=== PATIENT | male | born 1960 | race Caucasian/White ===

== ENCOUNTER 2024-07-15 07:13 | Day surgery (SDC) | payer MEDICARE, MEDICAID ==
[2024-07-13 14:09] LABS: Urine Bacteria None Seen /hpf (None Seen)
[2024-07-13 14:16] LABS: Basophils # (auto) 0 10 ^3/uL (0-0.2); Basophils % (auto) 0.4 % (0.0-2.0); Eosinophils # (auto) 0.2 10 ^3/uL (0-0.8); Eosinophils % (auto) 3.1 % (0.0-7.0); Hematocrit 48.8 % (41.0-53.0); Hemoglobin 17.1 g/dL (13.5-17.5); Lymphocytes # (auto) 1.6 10 ^3/uL (0.4-5.4); Lymphocytes % (auto) 21.2 % (10.0-50.0); Mean Corpuscular Hemoglobin 35.1 pg (28.0-32.0); Mean Corpuscular Hgb Conc. 35.1 g/dL (32.0-36.0); Mean Corpuscular Volume 100.1 fL (80.0-100.0); Monocytes # (auto) 0.6 10 ^3/uL (0-1.3); Neutrophils # (auto) 5.2 10 ^3/uL (1.6-8.6); Neutrophils % (auto) 67.3 % (37.0-80.0); Nucleated Red Blood Cells % 0.2 %; Platelet Count (auto) 166 10^3/uL (140-450); Red Blood Cells 4.88 10^6/uL (4.5-5.90); White Blood Cell 7.7 10^3/uL (4.4-10.8)
[2024-07-13 14:42] LABS: Urine Blood Negative /uL (Negative); Urine Clarity Clear (Clear); Urine Color Light-Yellow (Yellow); Urine Protein, UAD Negative (Negative); Urine Specific Gravity 1.008 (1.001-1.035); Urine Urobilinogen Normal (Negative); Urine WBC <1 /hpf (0 - 3); Urine pH 5.5 (5.0-9.0)
[2024-07-13 14:50] LABS: Alanine Aminotransferase 158 U/L (7-40); Albumin 4.8 g/dL (3.2-4.8); Alkaline Phosphatase 47 U/L (46-116); Anion Gap 7 (5-15); Aspartate Aminotransferase 91 U/L (13-40); BUN/Creatinine Ratio 14.3 (10.0-20.0); Blood Urea Nitrogen 13 mg/dL (9-23); Calcium 10.2 mg/dL (8.7-10.4); Carbon Dioxide 27 mmol/L (20-30); Chloride 103 mmol/L (98-107); Glucose 95 mg/dL (74-106); Potassium 5.5 mmol/L (3.5-5.1); Sodium 137 mmol/L (136-145)
[2024-07-13 14:51] LABS: Bilirubin, Total 0.9 mg/dL (0.2-1.0); Total Protein 7.7 g/dL (5.7-8.2)
[2024-07-13 15:00] LABS: INR 1.09 (0.9-1.15); Partial Thromboplastin Time 25.2 SEC (24.5-34.5); Prothrombin Time 11.7 sec (9.3-11.8)
[~2024-07-15] VITALS: Ht 182.9 cm; Wt 94.3 kg
[~2024-07-15 07:13] MED LIST: ACET-1304 PO; ALBUAER3 IN; APOA10CA PO; ASPI325T6 PO; DIA5T PO; FINA1TAB12 OR; FLUT50SP; IBUP-1455 PO; LEVO125T7 PO; LOSA-534 PO; METH-1214 PO; METO25TA93 PO; OMEP-448 PO; [UNRECOGNIZED DRUG - CODE] PO
[2024-07-15] MEDS ORDERED: KETAMINE 50mg/ML 1ml syringe IM ONE (07:14)
[2024-07-15] MEDS ORDERED: fentaNYL CITRATE 100 MCG/2 ML VL ONE (08:13)
[2024-07-15] MEDS ORDERED: ONDANSETRON HCL 4 MG/2 ML VIAL ONE (08:13)
[2024-07-15] MEDS ORDERED: PROPOFOL 10 MG/ML 20 ML IV ONE (08:13)
[2024-07-15] MEDS ORDERED: MIDAZOLAM HCL 2MG/2ML 2ml VIAL (1mg/ml) ONE (08:13)
[2024-07-15] MEDS ORDERED: LIDOCAINE 1% INJ PF 5ML AMP ONE (08:13)
[2024-07-15] MEDS ORDERED: LIDOCAINE VISCOUS 2% 15ML UD ONE (08:49)
[2024-07-15 09:06] VITALS: PULSE 91; RESP 10; TEMP 98.7; O2SAT 99
[2024-07-15 09:30] VITALS: BP 172/94; PULSE 87; RESP 15; O2SAT 96
== END 2024-07-15 09:50 | disposition home or self-care (01) ==
LOC: GI 07:13
PROVIDERS: ATTEND Internal Medicine Gastroenterology
DX: R10.13 Epigastric pain (principal); K29.50 Unspecified chronic gastritis without bleeding; E03.9 Hypothyroidism, unspecified; I10 Essential (primary) hypertension; J44.9 Chronic obstructive pulmonary disease, unspecified; E78.5 Hyperlipidemia, unspecified; Z79.890 Hormone replacement therapy; Z79.899 Other long term (current) drug therapy; Z98.61 Coronary angioplasty status; Z95.0 Presence of cardiac pacemaker; Z98.62 Peripheral vascular angioplasty status; Z79.82 Long term (current) use of aspirin; Z85.828 Personal history of other malignant neoplasm of skin
CPT/HCPCS: 36415; 43239; 80053; 81001; 85025; 85610; 85730; 88305; 88312; 88342; J2250; J2405; J2704; J3010; J7030